=== PATIENT | female | born 1945 | race Caucasian/White ===

== ENCOUNTER 2018-07-05 07:36 | Day surgery (SDC) ==
[2018-07-05] MEDS: BETADINE OPTH PREP OP PRN ×2 (07:45→08:25)
[2018-07-05] MEDS: TETRACAINE 0.5% UNIT-DOSE OP PRN ×2 (07:45→08:25)
[2018-07-05] MEDS: CYCLOGYL 2% OPTH OP PRN ×3 (07:46→07:56)
[2018-07-05] MEDS ORDERED: ZOFRAN 4 MG/2 ML IVP ONE (07:57)
[2018-07-05] MEDS ORDERED: BRIMONIDINE TARTRATE 0.2% OPTH SOL OP PRN (07:57)
[2018-07-05] MEDS ORDERED: BSS WITH EPINEPHRINE OP ONE (07:57)
[2018-07-05] MEDS ORDERED: DEX-MOXI-KETOR OPTH INJ 1/0.5/0.4 MG/ML IO ONE (07:57)
[2018-07-05] MEDS ORDERED: LIDOCAINE 1%/PHENYLEPHRINE 1.5% BSS (SURGERY) INTRAOCULA ONE (07:57)
[2018-07-05] MEDS ORDERED: LIDOCAINE 1% 20 ML MDV ID STA (07:57)
[2018-07-05 08:05] VITALS: TEMP 98.7
[2018-07-05] MEDS ORDERED: VERSED ONE (08:31)
[2018-07-05] MEDS ORDERED: SUBLIMAZE ONE (08:31)
[2018-07-05] MEDS ORDERED: ZOFRAN 4 MG/2 ML ONE (08:31)
[2018-07-06 10:21] VITALS: BP 143/66
== END 2018-07-05 09:55 | disposition home or self-care (01) ==
LOC: SURG 07:36
PROVIDERS: ATTEND Ophthalmology
DX: H25.11 Age-related nuclear cataract, right eye (principal)

== ENCOUNTER 2018-07-18 09:05 | Day surgery (SDC) ==
[2018-07-18] MEDS: TETRACAINE 0.5% UNIT-DOSE OP PRN ×2 (09:50→10:25)
[2018-07-18] MEDS: CYCLOGYL 2% OPTH OP PRN ×3 (09:50→10:00)
[2018-07-18] MEDS: BETADINE OPTH PREP OP PRN ×2 (09:50→10:25)
[2018-07-18] MEDS ORDERED: DEX-MOXI-KETOR OPTH INJ 1/0.5/0.4 MG/ML IO ONE (10:03)
[2018-07-18] MEDS ORDERED: BRIMONIDINE TARTRATE 0.2% OPTH SOL OP PRN (10:03)
[2018-07-18] MEDS ORDERED: BSS WITH EPINEPHRINE OP ONE (10:03)
[2018-07-18] MEDS ORDERED: ZOFRAN 4 MG/2 ML IVP ONE (10:03)
[2018-07-18] MEDS ORDERED: LIDOCAINE 1%/PHENYLEPHRINE 1.5% BSS (SURGERY) INTRAOCULA ONE (10:03)
[2018-07-18] MEDS ORDERED: LIDOCAINE 1% 20 ML MDV ID STA (10:03)
[2018-07-18] MEDS ORDERED: AK-DILATE 10% OPTH SOL OP PRN (10:10)
[2018-07-18] MEDS ORDERED: PRED FORTE 1% OP ONE (10:10)
[2018-07-18] MEDS ORDERED: ZOFRAN 4 MG/2 ML ONE (10:28)
[2018-07-18] MEDS ORDERED: VERSED ONE (10:28)
[2018-07-18 14:05] VITALS: TEMP 97.8
[2018-07-18 14:15] VITALS: BP 127/78
== END 2018-07-18 11:20 | disposition home or self-care (01) ==
LOC: SURG 09:05
PROVIDERS: ATTEND Ophthalmology
DX: H25.12 Age-related nuclear cataract, left eye (principal)